=== PATIENT | female | born 1975 | race Caucasian/White ===

== ENCOUNTER 2022-05-02 04:50 | Emergency (ER) | payer BC, OTHER ==
[2022-05-02 04:57] VITALS: BP 137/82; PULSE 78; RESP 16; TEMP 99; BMI 43.4
[2022-05-02] MEDS ORDERED: ACETAMINOPHEN 1000 MG/100 ML BAG IVPB ONE (05:04)
[2022-05-02] MEDS ORDERED: ONDANSETRON 4 MG/2 ML VIAL IVPUSH ONE (05:04)
[2022-05-02] MEDS ORDERED: ACETAMINOPHEN INJECTION 100 ML IVPB ONE (05:15)
[2022-05-02] MEDS ORDERED: ONDANSETRON 4 MG/2 ML VIAL ONE (05:15)
[2022-05-02] MEDS ORDERED: SODIUM CHLORIDE 1,000 ML IV STA (06:09)
[2022-05-02 07:06] LABS: BASO % 0.4 % (0-2.0); EOS % 0.3 % (0-4.5); HEMATOCRIT 40.1 % (32.4-45.2); HEMOGLOBIN 13.2 GM/dL (10.7-15.3); LYMPH % 8.8 % (8-40); MEAN PLT VOLUME 8.2 fl (7.5-11.1); MONO % 5.6 % (3.8-10.2); NEUT % 84.9 % (42.8-82.8); PLATELET COUNT 346 10^3/uL (134-434); RBC 4.55 M/mm3 (3.60-5.2); RDW 13.8 % (11.6-15.6); WHITE BLOOD COUNT 16.5 K/mm3 (4.0-10.0)
[2022-05-02 07:07] LABS: CALCIUM 8.8 mg/dL (8.5-10.1)
[2022-05-02 07:09] LABS: ALBUMIN 3.7 g/dl (3.4-5.0); BLOOD UREA NITROGEN 13.4 mg/dL (7-18)
[2022-05-02 07:11] LABS: CREATININE 0.7 mg/dL (0.55-1.3)
[2022-05-02 07:12] LABS: BILIRUBIN,TOTAL 0.6 mg/dL (0.2-1); TOT PROT 7.6 g/dl (6.4-8.2)
[2022-05-02] MEDS ORDERED: DIPHTH,PERTUSS(ACELL),TET 0.5 ML DISP.SYRIN IM ONE ×2 (07:22→07:23)
== END 2022-05-02 07:51 | disposition home or self-care (01) ==
LOC: FER 04:50
PROC: 0HQ1XZZ Repair Face Skin, External Approach (ICD-10-PCS; principal; 2022-05-02)
PROC: 3E033GC Introduction of Other Therapeutic Substance into Peripheral Vein, Percutaneous Approach (ICD-10-PCS; 2022-05-02)
PROC: 3E0234Z Introduction of Serum, Toxoid and Vaccine into Muscle, Percutaneous Approach (ICD-10-PCS; 2022-05-02)
DX: R55 Syncope and collapse (principal); S02.2XXA Fracture of nasal bones, initial encounter for closed fracture; S01.81XA Laceration without foreign body of other part of head, initial encounter; Y99.9 Unspecified external cause status
CPT/HCPCS: 12013; 36415; 70450-TC; 70486-TC; 80053; 84484; 85025; 90471; 90715; 93005; 96361; 96374; 96375; 99285-25

== ENCOUNTER 2022-05-06 10:45 | Emergency (ER) | payer BC ==
[2022-05-06 10:59] VITALS: BP 120/65; PULSE 90; RESP 16; TEMP 99.3; BMI 41.5
[2022-05-06] MEDS ORDERED: DEXAMETHASONE LIQUID 0.5 MG/5 ML PO ONE (11:29)
[2022-05-06] MEDS ORDERED: DEXAMETHASONE SOD PHOSPHATE/PF 10 MG/ML SDV ONE (11:34)
== END 2022-05-06 12:09 | disposition home or self-care (01) ==
LOC: FER 10:45
DX: R07.0 Pain in throat (principal); S01.81XA Laceration without foreign body of other part of head, initial encounter; Y99.9 Unspecified external cause status; Z48.02 Encounter for removal of sutures
CPT/HCPCS: 87070; 87077; 87651; 99283-25

== ENCOUNTER 2023-04-08 20:58 | Emergency (ER) | payer BC ==
[2023-04-08 21:14] VITALS: BP 124/67; PULSE 82; RESP 16; TEMP 98.2; BMI 44.2
[2023-04-08 21:29] LABS: HCG,QUALITATIVE URINE Negative
[2023-04-08] MEDS ORDERED: KETOROLAC TROMETHAMINE 15 MG/ML VIAL IM ONE (21:35)
[2023-04-08 21:39] LABS: CALCIUM OXALATE CRYSTALS FEW /hpf (NONE SEEN); EPITHELIAL CELLS 0-5 /hpf
[2023-04-08] MEDS ORDERED: KETOROLAC TROMETHAMINE 15 MG/ML VIAL ONE (21:46)
[2023-04-08 22:05] LABS: HEMATOCRIT 42.6 % (32.4-45.2); HEMOGLOBIN 13.8 G/dL (10.7-15.3); MCH 28.7 pg (25.7-33.7); MCHC 32.5 g/dl (32.0-36.0); MEAN CELL VOLUME 88.3 fl (80-96); MEAN PLT VOLUME 7.7 fl (7.5-11.1); PLATELET COUNT 342.1 10^3/uL (134-434); RBC 4.82 10^6/uL (3.60-5.2); RDW 14.7 % (11.6-15.6); WHITE BLOOD COUNT 10.2 10^3/uL (4.0-10.8)
[2023-04-08 22:14] LABS: PLATELET ESTIMATE ADEQUATE
[2023-04-08 22:20] LABS: ALBUMIN 4.3 g/dl (3.4-5.0); BILIRUBIN,TOTAL 0.3 mg/dl (0.2-1); CALCIUM 9.7 mg/dl (8.5-10.1); CREATININE 0.7 mg/dl (0.6-1.3); POTASSIUM 4.1 mmol/L (3.5-5.1); TOT PROT 7.4 g/dl (6.4-8.2)
== END 2023-04-08 23:22 | disposition home or self-care (01) ==
LOC: FER 20:58
PROC: 3E0233Z Introduction of Anti-inflammatory into Muscle, Percutaneous Approach (ICD-10-PCS; principal; 2023-04-08)
DX: R10.9 Unspecified abdominal pain (principal)
CPT/HCPCS: 36415; 74176-TC; 80053; 81003; 81015; 84703; 85027; 87086; 99284-25

== ENCOUNTER 2023-12-27 11:56 | Emergency (ER) | payer BC ==
[2023-12-27 12:10] VITALS: BP 121/89; PULSE 89; RESP 20; TEMP 99; BMI 42.5
[2023-12-27] MEDS: ALBUTEROL SO4 2.5/IPRATROPIUM 0.5 INH SOL 3 ML VIAL.NEB. NEB SCH (12:15)
[2023-12-27] MEDS: ACETAMINOPHEN 500 MG TABLET (FP) PO ONE (12:29)
[2023-12-27] MEDS ORDERED: ACETAMINOPHEN 500 MG TABLET (FP) ONE (12:45)
[2023-12-27] MEDS ORDERED: predniSONE 20 MG TABLET (UD) ONE (13:16)
[2023-12-27] MEDS ORDERED: ALBUTEROL SO4 2.5/IPRATROPIUM 0.5 INH SOL 3 ML VIAL.NEB. NEB ONE (13:16)
[2023-12-27] MEDS: ALBUTEROL SO4 2.5/IPRATROPIUM 0.5 INH SOL 3 ML VIAL.NEB. NEB ONE (13:35)
[2023-12-27] MEDS: ALBUTEROL SO4 HFA INHALER IH ONE (13:35)
[2023-12-27] MEDS: predniSONE 20 MG TABLET (UD) PO ONE (13:35)
[2023-12-27] MEDS ORDERED: ALBUTEROL SO4 HFA INHALER IH ONE (13:40)
== END 2023-12-27 13:44 | disposition home or self-care (01) ==
LOC: FER 11:56
PROC: 3E0F7GC Introduction of Other Therapeutic Substance into Respiratory Tract, Via Natural or Artificial Opening (ICD-10-PCS; principal; 2023-12-27)
PROC: 3E0F7GC Introduction of Other Therapeutic Substance into Respiratory Tract, Via Natural or Artificial Opening (ICD-10-PCS; 2023-12-27)
DX: J44.9 Chronic obstructive pulmonary disease, unspecified (principal); J06.9 Acute upper respiratory infection, unspecified; Z20.822 Contact with and (suspected) exposure to COVID-19
CPT/HCPCS: 0241U-QW; 71046-TC-FY; 99284-25

== ENCOUNTER 2024-03-29 13:52 | Emergency (ER) | payer BC, OTHER ==
[2024-03-29 14:11] VITALS: BP 118/62; PULSE 77; RESP 20; TEMP 98.2; BMI 41.6
[2024-03-29] MEDS: KETOROLAC TROMETHAMINE 15 MG/ML VIAL IVPUSH ONE (15:24)
[2024-03-29] MEDS ORDERED: KETOROLAC TROMETHAMINE 15 MG/ML VIAL ONE (15:25)
[2024-03-29 15:55] LABS: HEMATOCRIT 39.7 % (32.4-45.2); HEMOGLOBIN 13.1 G/dL (10.7-15.3); MEAN CELL VOLUME 87.6 fl (80-96); MEAN PLT VOLUME 8.2 fl (7.5-11.1); PLATELET COUNT 335.8 10^3/uL (134-434); RBC 4.53 10^6/uL (3.60-5.2); RDW 14.2 % (11.6-15.6); WHITE BLOOD COUNT 9.1 10^3/uL (4.0-10.8)
[2024-03-29 15:56] LABS: ALBUMIN 4.2 g/dl (3.4-5.0); ALK PHOS 71 U/L (45-117); ANION GAP 8 mmol/L (4-13); BILIRUBIN,TOTAL 0.3 mg/dl (0.2-1); CALCIUM 9.5 mg/dl (8.5-10.1); CHLORIDE 106 mmol/L (98-107); CO2 26 mmol/L (21-32); CREATININE 0.7 mg/dl (0.6-1.3); GLUCOSE,RANDOM 85 mg/dl (74-106); MAGNESIUM 1.9 mg/dL (1.8-2.4); SGOT/AST 18 U/L (15-37); SGPT/ALT 30 U/L (7-52); SODIUM 140 mmol/L (136-145); TOT PROT 7.2 g/dl (6.4-8.2)
[2024-03-29 17:01] LABS: PLATELET ESTIMATE ADEQUATE
[2024-03-29 17:03] LABS: HIV INTERPRETATION NEGATIVE (NEGATIVE)
== END 2024-03-29 16:33 | disposition home or self-care (01) ==
LOC: FER 13:52
PROC: 3E0333Z Introduction of Anti-inflammatory into Peripheral Vein, Percutaneous Approach (ICD-10-PCS; principal; 2024-03-29)
DX: R07.2 Precordial pain (principal); R20.2 Paresthesia of skin
CPT/HCPCS: 36415; 71046-TC-FY; 80053; 83735; 84484; 85027; 86803; 87389; 93005; 99285-25